=== PATIENT | female | born 1975 | race Two or more races ===

== ENCOUNTER 2017-08-06 22:42 | Emergency (ER) | payer OTHER ==
[~2017-08-06] VITALS: Ht 167.6 cm; Wt 87.9 kg
[2017-08-06] MEDS ORDERED: IBUPROFEN 200 MG TABLET PO ONE (23:30)
[2017-08-06] MEDS ORDERED: ONDANSETRON ODT 4 MG PO ONE (23:30)
[2017-08-06] MEDS ORDERED: HYDROcodone/APAP 5/325 TABLET PO ONE (23:30)
[2017-08-06] MEDS ORDERED: HYDROcodone/APAP 5/325 TABLET ONE (23:33)
[2017-08-06] MEDS ORDERED: ONDANSETRON ODT 4 MG ONE (23:34)
[2017-08-06] MEDS ORDERED: IBUPROFEN 200 MG TABLET ONE (23:34)
[2017-08-07 00:21] VITALS: BP 167/102
== END 2017-08-07 01:27 | disposition home or self-care (01) ==
LOC: ED 23:59
DX: S93.492A Sprain of other ligament of left ankle, initial encounter (principal); S93.432A Sprain of tibiofibular ligament of left ankle, initial encounter; S80.02XA Contusion of left knee, initial encounter; W10.8XXA Fall (on) (from) other stairs and steps, initial encounter; Y93.89 Activity, other specified; Y92.89 Other specified places as the place of occurrence of the external cause; Y99.8 Other external cause status
CPT/HCPCS: 99284